=== PATIENT | male | born 1980 | race Caucasian/White ===

== ENCOUNTER 2017-04-19 12:15 | Emergency (ER) | payer OTHER ==
[~2017-04-19] VITALS: Ht 177.8 cm; Wt 89.0 kg
[2017-04-19] MEDS ORDERED: PEN-VEE K,VEET500 MG PO (14:18)
[2017-04-19] MEDS ORDERED: MOTRIN800 MG PO (14:18)
[2017-04-19 14:51] VITALS: BP 130/82
== END 2017-04-19 14:52 | disposition home or self-care (01) ==
LOC: EME 12:15
DX: K08.89 Other specified disorders of teeth and supporting structures (principal); Z76.5 Malingerer [conscious simulation]
CPT/HCPCS: 99281; 99284